=== PATIENT | female | born 1955 | race Caucasian/White ===

== ENCOUNTER → 2018-06-24 | Outpatient (CLI) | payer OTHER ==
[~2018-06-24] MED LIST: CYCL10 PO; ESCI10 PO
== END | disposition home or self-care (01) ==
LOC: LAB SHORT 14:05 → PLD 14:05
DX: L93.0 Discoid lupus erythematosus (principal)
CPT/HCPCS: 88305; 88313

== ENCOUNTER 2018-08-06 20:40 | Emergency (ER) | payer OTHER ==
[~2018-08-06] VITALS: Ht 160 cm; Wt 68.0 kg
[2018-08-06 21:02] LABS: BASOPHILS ABSOLUTE AUTO 0.03 K/mm3 (0.00-0.23); BASOPHILS PERCENT AUTO 0 % (0-2); EOSINOPHILS ABSOLUTE AUTO 0.15 K/mm3 (0.00-0.68); EOSINOPHILS PERCENT AUTO 2 % (0-6); Hematocrit 39.9 % (33.0-51.0); Hemoglobin 12.9 g/dL (11.5-16.0); IMMATURE GRAN ABSOLUTE AUTO 0.03 K/mm3 (0.00-0.10); IMMATURE GRAN PERCENT AUTO 0 % (0-1); LYMPHOCYTES ABSOLUTE AUTO 2.16 K/mm3 (0.84-5.20); LYMPHOCYTES PERCENT AUTO 26 % (21-46); MONOCYTES ABSOLUTE AUTO 0.82 K/mm3 (0.16-1.47); MONOCYTES PERCENT AUTO 10 % (4-13); Mean Corpuscular HGB 32.3 pg (26.0-34.0); Mean Corpuscular HGB Conc 32.3 g/dL (31.5-36.5); Mean Corpuscular Volume 100 fL (80-100); NEUTROPHILS ABSOLUTE AUTO 5.21 K/mm3 (1.96-9.15); NEUTROPHILS PERCENT AUTO 62 % (41-73); Platelet Count 287 K/mm3 (150-400); RDW Coefficient Variation 12.3 % (11.7-14.2); RDW Standard Deviation 44.8 fL (35.1-46.3)
[2018-08-06 21:26] LABS: Alanine Aminotransfer (ALT/SGP 32 U/L (12-78); Albumin, Blood 3.6 g/dL (3.4-5.0); Albumin/Globulin Ratio 0.9 (0.8-1.8); Alk Phos 108 U/L (50-136); Anion Gap 9 mmol/L (6-16); Aspartate Aminotrans (AST/SGOT 20 U/L (12-37); Bilirubin, Total 0.5 mg/dL (0.1-1.0); Blood Urea Nitrogen 15 mg/dL (8-24); Bun/Creatinine Ratio 13.5 (12.0-20.0); CO2, Blood 26 mmol/L (21-32); Calcium, Blood 8.5 mg/dL (8.5-10.1); Chloride, Blood 104 mmol/L (98-108); Creatinine, Blood 1.11 mg/dL (0.40-1.00); Globulin, Blood 4.1 g/dL (2.2-4.0); Glomerular Filtration Rate 53 (60-); Glucose, Blood 104 mg/dL (70-99); Sodium, Blood 139 mmol/L (136-145); Total Protein, Blood 7.7 g/dL (6.4-8.2)
[2018-08-06] MEDS ORDERED: PIRO20 PO (21:26)
[2018-08-06] MEDS ORDERED: Isosorbide Dini30 MG PO (21:26)
[2018-08-06] MEDS ORDERED: Hydrocodone-Ap1 EA20 PO (21:26)
[2018-08-06] MEDS ORDERED: MOME.1TO (21:27)
[2018-08-06 21:28] LABS: Troponin I <0.015 ng/mL (0.000-0.040)
[2018-08-06] MEDS ORDERED: ESCI20 PO (22:25)
== END 2018-08-07 01:32 | disposition home or self-care (01) ==
LOC: ER 20:40
PROVIDERS: Emergency Medicine
DX: R07.9 Chest pain, unspecified (principal); Z88.8 Allergy status to other drugs, medicaments and biological substances; Z79.899 Other long term (current) drug therapy; F17.210 Nicotine dependence, cigarettes, uncomplicated
CPT/HCPCS: 36415; 71046; 80053; 83880; 84484; 85025; 93005; 93010; 99285-25

== ENCOUNTER → 2019-09-07 | Outpatient (CLI) | payer OTHER ==
[~2019-09-07] MED LIST changes: +ESCI20 PO; +Hydrocodone-Ap1 EA20 PO; +Isosorbide Dini30 MG PO; +MOME.1TO; +PIRO20 PO
== END ==
LOC: LAB SHORT 09:44 → LAB 09:44
DX: L08.9 Local infection of the skin and subcutaneous tissue, unspecified (principal)
CPT/HCPCS: 87070; 87077; 87147; 87186; 87205

== ENCOUNTER 2023-09-27 23:34 | Emergency (ER) | payer OTHER ==
[~2023-09-27] VITALS: Ht 160 cm; Wt 68.0 kg
[2023-09-27 23:53] VITALS: BP 155/86
[2023-09-28 00:27] LABS: Source, Urine Clean Catch
[2023-09-28 00:38] LABS: Bilirubin, Urine Neg (Neg); Blood, Urine Neg (Neg); Glucose Qualitative, Urine Neg (Neg); Ketones, Urine Neg (Neg); Leukocyte Esterase, Urine 2+ (Neg); Nitrite, Urine Neg (Neg); Protein, Urine Neg (Neg); Urobilinogen, Urine NORM (Normal)
[2023-09-28 00:39] LABS: Appearance, Urine Clear (Clear); Color, Urine Yellow (P-Yellow)
[2023-09-28 00:59] LABS: Bacteria Few /hpf; Red Blood Cells, Urine Not Seen /hpf (0-2); Squamous Epithelial Cells Not Seen /hpf (Few)
[2023-09-28 01:59] LABS: BASOPHILS ABSOLUTE AUTO 0.04 K/mm3 (0.00-0.23); BASOPHILS PERCENT AUTO 1 % (0-2); EOSINOPHILS ABSOLUTE AUTO 0.18 K/mm3 (0.00-0.68); EOSINOPHILS PERCENT AUTO 2 % (0-6); Hematocrit 39.5 % (33.0-51.0); Hemoglobin 13.5 g/dL (11.5-16.0); IMMATURE GRAN ABSOLUTE AUTO 0.02 K/mm3 (0.00-0.10); IMMATURE GRAN PERCENT AUTO 0 % (0-1); LYMPHOCYTES ABSOLUTE AUTO 3.14 K/mm3 (0.84-5.20); LYMPHOCYTES PERCENT AUTO 38 % (21-46); MONOCYTES PERCENT AUTO 9 % (4-13); Mean Corpuscular HGB 31.2 pg (26.0-34.0); Mean Corpuscular HGB Conc 34.2 g/dL (31.5-36.5); Mean Corpuscular Volume 91 fL (80-100); Mean Platelet Volume 9.5 fL (9.1-12.4); NEUTROPHILS ABSOLUTE AUTO 4.16 K/mm3 (1.96-9.15); NEUTROPHILS PERCENT AUTO 51 % (41-73); Platelet Count 280 K/mm3 (150-400); RDW Coefficient Variation 11.6 % (11.7-14.2); RDW Standard Deviation 38.9 fL (35.1-46.3); Red Blood Cell Count 4.33 M/mm3 (3.80-5.20); White Blood Cell Count 8.24 K/mm3 (4.00-11.30)
[2023-09-28 02:05] LABS: Albumin, Blood 3.6 g/dL (3.4-5.0); Albumin/Globulin Ratio 0.8 (0.8-1.8); Bilirubin, Total 0.3 mg/dL (0.1-1.0); Bun/Creatinine Ratio 15.8 (12.0-20.0); Calcium, Blood 9.1 mg/dL (8.5-10.1); Creatinine, Blood 1.14 mg/dL (0.40-1.00); Globulin, Blood 4.5 g/dL (2.2-4.0); Potassium, Blood 3.7 mmol/L (3.5-5.5); Total Protein, Blood 8.1 g/dL (6.4-8.2)
== END 2023-09-28 01:30 | disposition home or self-care (01) ==
LOC: ER 23:34
PROVIDERS: Emergency Medicine; Physician Assistant
DX: R31.9 Hematuria, unspecified (principal); Z88.8 Allergy status to other drugs, medicaments and biological substances; Z79.899 Other long term (current) drug therapy; Z79.891 Long term (current) use of opiate analgesic; F17.210 Nicotine dependence, cigarettes, uncomplicated
CPT/HCPCS: 80053; 81001; 85025; 87086; 99283

== ENCOUNTER 2025-02-17 14:41 | Inpatient (IN) | payer OTHER ==
[~2025-02-17] VITALS: Ht 160 cm; Wt 62.1 kg
[2025-02-17 15:22] LABS: BASOPHILS ABSOLUTE AUTO 0.03 K/mm3 (0.00-0.23); BASOPHILS PERCENT AUTO 0 % (0-2); EOSINOPHILS ABSOLUTE AUTO 0.09 K/mm3 (0.00-0.68); EOSINOPHILS PERCENT AUTO 1 % (0-6); Hematocrit 39.8 % (33.0-51.0); Hemoglobin 13.4 g/dL (11.5-16.0); IMMATURE GRAN ABSOLUTE AUTO 0.03 K/mm3 (0.00-0.10); IMMATURE GRAN PERCENT AUTO 0 % (0-1); LYMPHOCYTES ABSOLUTE AUTO 2.44 K/mm3 (0.84-5.20); LYMPHOCYTES PERCENT AUTO 27 % (21-46); MONOCYTES ABSOLUTE AUTO 0.81 K/mm3 (0.16-1.47); MONOCYTES PERCENT AUTO 9 % (4-13); Mean Corpuscular HGB 30.4 pg (26.0-34.0); Mean Corpuscular HGB Conc 33.7 g/dL (31.5-36.5); Mean Corpuscular Volume 90 fL (80-100); Mean Platelet Volume 9.4 fL (9.1-12.4); NEUTROPHILS ABSOLUTE AUTO 5.59 K/mm3 (1.96-9.15); NEUTROPHILS PERCENT AUTO 62 % (41-73); Platelet Count 307 K/mm3 (150-400); RDW Coefficient Variation 11.9 % (11.7-14.2); RDW Standard Deviation 39.3 fL (35.1-46.3); Red Blood Cell Count 4.41 M/mm3 (3.80-5.20); White Blood Cell Count 8.99 K/mm3 (4.00-11.30)
[2025-02-17 15:47] LABS: Albumin, Blood 3.6 g/dL (3.4-5.0); Albumin/Globulin Ratio 0.8 (0.8-1.8); Bilirubin, Total 0.2 mg/dL (0.1-1.0); Bun/Creatinine Ratio 10.2 (12.0-20.0); Calcium, Blood 9.5 mg/dL (8.5-10.1); Creatinine, Blood 1.18 mg/dL (0.40-1.00); Globulin, Blood 4.6 g/dL (2.2-4.0); Potassium, Blood 4.1 mmol/L (3.5-5.5); Total Protein, Blood 8.2 g/dL (6.4-8.2)
[2025-02-17] MEDS ORDERED: Aspirin 325 MG Tab PO ONE (18:45)
[2025-02-17] MEDS ORDERED: Hydroxychloroq200 MG PO (18:49)
[2025-02-17] MEDS ORDERED: DiphenhydrAMINE HCl 50 MG/ML 1ML Vial IV ONE (19:00)
[2025-02-17] MEDS ORDERED: Ondansetron HCl 2 MG / ML 2ML Vial IV PRN (19:30)
[2025-02-17 19:33] LABS: Prothrombin Time Results 10.7 Sec (9.7-11.5)
[2025-02-17] MEDS ORDERED: Clopidogrel Bisulfate 300 MG TABLET PO ONE (19:35)
[2025-02-17] MEDS ORDERED: NS 1,000 ML IV SCH (19:35)
[2025-02-17] MEDS ORDERED: Albuterol 2.5 MG/3 ML VIAL INH PRN (19:40)
[2025-02-17] MEDS ORDERED: Heparin Sodium 5000 Units/ML 1ML MDV IV ONE (19:45)
[2025-02-17] MEDS ORDERED: Heparin Sodium,Porcine/0.5 NS 500 ML IV SCH (19:45)
[2025-02-17] MEDS ORDERED: Metoprolol Tartrate 25 MG Tab PO SCH (20:00)
[2025-02-17 21:45] VITALS: BP 109/68
[2025-02-17 23:55] VITALS: BP 121/62
[2025-02-18] VITALS (12 sets, daily range): BP systolic 55–142; BP diastolic 46–87
[2025-02-18 03:31] LABS: Hematocrit 36.2 % (33.0-51.0); Hemoglobin 11.8 g/dL (11.5-16.0); Mean Corpuscular HGB 29.9 pg (26.0-34.0); Mean Corpuscular HGB Conc 32.6 g/dL (31.5-36.5); Mean Corpuscular Volume 92 fL (80-100); Mean Platelet Volume 9.6 fL (9.1-12.4); Platelet Count 261 K/mm3 (150-400); RDW Coefficient Variation 11.9 % (11.7-14.2); Red Blood Cell Count 3.95 M/mm3 (3.80-5.20); White Blood Cell Count 7.53 K/mm3 (4.00-11.30)
[2025-02-18] MEDS ORDERED: Dose Adjust by Pharmacy XX STA ×2 (03:54→10:03)
[2025-02-18 04:00] LABS: Bun/Creatinine Ratio 13.1 (12.0-20.0); Calcium, Blood 8.2 mg/dL (8.5-10.1); Creatinine, Blood 1.07 mg/dL (0.40-1.00); Magnesium, Blood 1.8 mg/dL (1.6-2.4); Potassium, Blood 3.5 mmol/L (3.5-5.5)
--- NOTE | 2025-02-18 06:03 | NUR ---
SHIFT SUMMARY PT IS A&O X4, ABLE TO MAKE NEEDS KNOWN, MOVING ALL EXTREMITIES WITH PURPOSE, OBEYS COMMANDS, PT SBA, REPOSITIONING SELF IN BED. CONTINUOUS SPO2, SPO2 GREATER 90% ON RA, NO SIGNS OF RESPIRATORY DISTRESS NOTED. CONTINUOUS TELE MONITORING, SINUS 60 S, PULSES PRESENT T/O, CAP REFILL WNL, PT DENEIS CHEST P/P T/O THIS SHIFT. BOWEL TONES PRESENT IN ALL 4Q, PT DENIES FEELINGS OF CONSTIPATION AND NAUSEA. PT NPO SINCE 0000. PT VOIDING IND, URINE YELLOW IN COLOR. BED LOWEST POSITION, CALL LIGHT IN REACH, AWAITING TO GIVE REPORT TO ONCOMING RN.
--- NOTE | 2025-02-18 07:44 | NUR ---
am note this rn assumed care at 0700. vital signs stable. md garcia in roomat 0744 to discuss plan to have angiogram today for pci andwent over risks vs benefits. this rn mentioned patient reaction to idodine from the ct/pe study and rash on arms and plan to pretreat the patient with medicatioin. patient agrees to this plan.
--- NOTE | 2025-02-18 07:50 | NUR ---
am shift summary patient is alert and oriented x4. neuro is intact. perrla. patient denies pain, chest pain/pressure or shortness of breath. see shift assessment for further detials.
[2025-02-18] MEDS ORDERED: MethylPREDNISolone Sod Succ 125 MG Vial IV ONE (08:30)
[2025-02-18] MEDS ORDERED: DiphenhydrAMINE HCL 25 MG Cap PO ONE (08:30)
[2025-02-18] MEDS ORDERED: Clopidogrel Bisulfate 75 MG Tab PO SCH (09:00)
[2025-02-18] MEDS ORDERED: Potassium Chloride 20 MEQ TabCR PO ONE (09:00)
[2025-02-18] MEDS ORDERED: Aspirin 81 MG Chew PO SCH (09:00)
[2025-02-18] MEDS ORDERED: Atorvastatin 40 MG Tab PO SCH (09:00)
[2025-02-18] MEDS ORDERED: Nicotine 21 MG PATCH TOP SCH (09:00)
--- NOTE | 2025-02-18 10:27 | NUR ---
update- md suazo in room at 0930 and spoke with patient about plan for angio. echo in room at 1015 doing echo.
[2025-02-18] MEDS ORDERED: Verapamil HCL 2.5 MG/ML 2ML Injection ONE (10:49)
[2025-02-18] MEDS ORDERED: NS 0 ML IV ONE (10:50)
[2025-02-18] MEDS ORDERED: NS 250 ML IV ONE (10:50)
[2025-02-18] MEDS ORDERED: Heparin Sodium 1000 Units/ML 10ML MDV ONE (10:50)
[2025-02-18] MEDS ORDERED: FentaNYL Citrate 50 MCG/ML 2 ML Injection ONE (10:58)
[2025-02-18] MEDS ORDERED: Midazolam HCl 1MG / ML 2ML Vial ONE (10:58)
[2025-02-18] MEDS ORDERED: NS 1,000 ML IV ONE ×2 (10:58→10:59)
[2025-02-18] MEDS ORDERED: Famotidine 10 MG/ML 2ML Vial ONE (11:05)
[2025-02-18] MEDS ORDERED: DiphenhydrAMINE HCl 50 MG/ML 1ML Vial ONE (11:05)
--- NOTE | 2025-02-18 11:19 | NUR ---
FOR ANGIO patient left for angio at 1050.
--- NOTE | 2025-02-18 11:53 | NUR ---
return pateint returned from angio and has a right radail site that has tr band in place with 12cc in it at 1133. site is soft non tender no bleeding or hematoma. vital signs stable
[2025-02-18] MEDS ORDERED: Tiotropium Bromide 2.5 MCG/ACT MIST INHAL (10 ACT/4 GM) INH SCH (15:20)
[2025-02-18] MEDS ORDERED: Albuterol HFA200 ACT/6.7 GM INH INH PRN (15:20)
[2025-02-18] MEDS ORDERED: Mometasone/Formoterol MDI 200/5 mcg 13 GM INH SCH (15:20)
[2025-02-18] MEDS ORDERED: ALBU90OI INH (16:55)
[2025-02-18] MEDS ORDERED: ASPI81CH PO (16:55)
[2025-02-18] MEDS ORDERED: METO25ER PO (16:56)
[2025-02-18] MEDS ORDERED: Lipitor80 MG PO (16:56)
[2025-02-18] MEDS ORDERED: DULERA 200 MCG-13 GM (16:57)
[2025-02-18] MEDS ORDERED: TIOT18 INH (16:58)
[2025-02-18] MEDS ORDERED: FURO20 PO (16:58)
[2025-02-18] MEDS ORDERED: Chantix1 MG PO (16:58)
--- NOTE | 2025-02-18 17:17 | NUR ---
DISCHARGE EDUCATION this rn went over discharge education with the patient. this rn went over restrictions of right arm due to the radial site, and highlighted it on the printed out information. patient verbalized understanding. this rn went over new medications and the significance of each medication. this rn went over the importance of follow up appointment with primary care provider and to repeat echo in 6 months and see asset protection lead after echo. patient verbalized understanding. patient belongings gathered and awaiting for patient son to arrive to pick patient up. vitals remain stable. right radial site is soft nontender no bleeding or hematoma
== END 2025-02-18 17:25 | disposition home or self-care (01) | DRG 287 ==
LOC: ER 14:41 → PCU 14:42 → ER 19:29 → PCU 21:30
PROVIDERS: Nurse Practitioner Acute Care; Pharmacist; Student in an Organized Health Care Education/Training Program; ADMIT Internal Medicine
PROC: 4A023N7 Measurement of Cardiac Sampling and Pressure, Left Heart, Percutaneous Approach (ICD-10-PCS; principal; 2025-02-18)
PROC: B2111ZZ Fluoroscopy of Multiple Coronary Arteries using Low Osmolar Contrast (ICD-10-PCS; 2025-02-18)
DX: I51.81 Takotsubo syndrome (principal); J43.9 Emphysema, unspecified; F17.210 Nicotine dependence, cigarettes, uncomplicated; E78.5 Hyperlipidemia, unspecified; M32.9 Systemic lupus erythematosus, unspecified; N18.31 Chronic kidney disease, stage 3a; R79.1 Abnormal coagulation profile; Z88.6 Allergy status to analgesic agent; Z88.8 Allergy status to other drugs, medicaments and biological substances; Z79.51 Long term (current) use of inhaled steroids; Z79.891 Long term (current) use of opiate analgesic; Z91.041 Radiographic dye allergy status
CPT/HCPCS: 36415; 71046; 71260; 76937; 80048; 80053; 83735; 84484; 85025; 85027; 85379; 85520; 85610; 85730; 93005; 93010; 93458; 94640; 94664; 94762; 99152; 99285-25; A9270; C1769; C1887; C1894; C8929; G0378; J1200; J1644; J2250; J2919; J3010; J7030; J7050; Q9957; Q9967

== ENCOUNTER 2025-04-22 21:55 | Emergency (ER) | payer OTHER ==
[~2025-04-22] VITALS: Ht 160 cm; Wt 62.6 kg
[~2025-04-22 21:55] MED LIST changes: +ALBU90OI INH; +ASPI81CH PO; +Chantix1 MG PO; +DULERA 200 MCG-13 GM; +FURO20 PO; +Hydroxychloroq200 MG PO; +Lipitor80 MG PO; +METO25ER PO; +TIOT18 INH
[2025-04-22] MEDS ORDERED: Fluorescein Sod 1MG Opth Strips BOTHEYES ONE (22:45)
[2025-04-22] MEDS ORDERED: Tetracaine HCl/Pf 0.5% Opth Soln 4 ml BOTHEYES ONE (22:45)
[2025-04-23] VITALS: BP 147/70
[2025-04-23] MEDS ORDERED: Tobramycin/Dexameth Opth Susp 2.5 ML LEFTEYE SCH (00:55)
== END 2025-04-23 01:14 | disposition home or self-care (01) ==
LOC: ER 21:55
DX: H20.9 Unspecified iridocyclitis (principal); H53.143 Visual discomfort, bilateral; J44.9 Chronic obstructive pulmonary disease, unspecified; F17.210 Nicotine dependence, cigarettes, uncomplicated; Z79.82 Long term (current) use of aspirin; Z79.899 Other long term (current) drug therapy; Z88.6 Allergy status to analgesic agent; Z88.8 Allergy status to other drugs, medicaments and biological substances
CPT/HCPCS: 99283; A9270

== ENCOUNTER 2025-06-10 20:46 | Emergency (ER) | payer OTHER ==
[~2025-06-10] VITALS: Ht 160 cm; Wt 63.5 kg
[2025-06-10 21:00] LABS: BASOPHILS ABSOLUTE AUTO 0.05 K/mm3 (0.00-0.23); BASOPHILS PERCENT AUTO 1 % (0-2); EOSINOPHILS ABSOLUTE AUTO 0.22 K/mm3 (0.00-0.68); EOSINOPHILS PERCENT AUTO 3 % (0-6); Hematocrit 37.6 % (33.0-51.0); Hemoglobin 12.8 g/dL (11.5-16.0); IMMATURE GRAN ABSOLUTE AUTO 0.03 K/mm3 (0.00-0.10); IMMATURE GRAN PERCENT AUTO 0 % (0-1); LYMPHOCYTES ABSOLUTE AUTO 3.56 K/mm3 (0.84-5.20); LYMPHOCYTES PERCENT AUTO 42 % (21-46); MONOCYTES ABSOLUTE AUTO 0.76 K/mm3 (0.16-1.47); MONOCYTES PERCENT AUTO 9 % (4-13); Mean Corpuscular HGB Conc 34.0 g/dL (31.5-36.5); Mean Corpuscular Volume 91 fL (80-100); NEUTROPHILS ABSOLUTE AUTO 3.80 K/mm3 (1.96-9.15); NEUTROPHILS PERCENT AUTO 45 % (41-73); NRBC ABSOLUTE 0.00 K/mm3 (0.00-0.02); NRBC Auto 0.0 /100 WBC (0.0-0.2); Platelet Count 348 K/mm3 (150-400); RDW Coefficient Variation 12.2 % (11.7-14.2); RDW Standard Deviation 40.8 fL (35.1-46.3)
[2025-06-10 21:21] LABS: Alanine Aminotransfer (ALT/SGP 26.0 U/L (12-78); Albumin, Blood 3.6 g/dL (3.4-5.0); Albumin/Globulin Ratio 0.9 (0.8-1.8); Anion Gap 5.0 mmol/L (3-11); Aspartate Aminotrans (AST/SGOT 24.0 U/L (12-37); Bilirubin, Total 0.2 mg/dL (0.1-1.0); Blood Urea Nitrogen 9.0 mg/dL (8-24); CO2, Blood 26.0 mmol/L (21-32); Calcium, Blood 8.5 mg/dL (8.5-10.1); Chloride, Blood 108.0 mmol/L (98-108); Creatinine, Blood 1.05 mg/dL (0.40-1.00); Globulin, Blood 3.9 g/dL (2.2-4.0); Glucose, Blood 91.0 mg/dL (70-99); Potassium, Blood 4.0 mmol/L (3.5-5.5); Sodium, Blood 135.0 mmol/L (136-145); Total Protein, Blood 7.5 g/dL (6.4-8.2)
[2025-06-10 22:45] VITALS: BP 129/65
== END 2025-06-10 22:56 | disposition home or self-care (01) ==
LOC: ER 20:46
PROVIDERS: Emergency Medicine
DX: R07.9 Chest pain, unspecified (principal); R06.02 Shortness of breath; J44.9 Chronic obstructive pulmonary disease, unspecified; F17.210 Nicotine dependence, cigarettes, uncomplicated; N18.30 Chronic kidney disease, stage 3 unspecified; Z79.82 Long term (current) use of aspirin; Z79.899 Other long term (current) drug therapy
CPT/HCPCS: 71046; 80053; 83690; 84484; 85025; 93005; 93010; 99285-25